=== PATIENT | female | born 1970 | race Caucasian/White ===

== ENCOUNTER 2017-06-28 12:08 | Outpatient (CLI) | payer BC ==
[~2017-06-28 12:08] MED LIST: Iopamidol 370 76% 100 ML VIAL ONE
== END 2017-06-28 12:09 | disposition home or self-care (01) ==
LOC: BICCT 12:08
PROVIDERS: ATTEND Student in an Organized Health Care Education/Training Program
DX: R19.00 Intra-abdominal and pelvic swelling, mass and lump, unspecified site (principal); N85.2 Hypertrophy of uterus; K42.9 Umbilical hernia without obstruction or gangrene
CPT/HCPCS: 74177

== ENCOUNTER 2018-02-24 07:59 | Outpatient (CLI) | payer BC | END 2018-02-24 08:00 | disposition home or self-care (01) | LOC: BICMAMMO 07:59 | PROVIDERS: ATTEND Student in an Organized Health Care Education/Training Program | DX: Z12.31 Encounter for screening mammogram for malignant neoplasm of breast (principal); Z85.850 Personal history of malignant neoplasm of thyroid | CPT/HCPCS: 77063; 77067 ==

== ENCOUNTER 2018-07-08 11:17 | Outpatient (CLI) | payer BC ==
[2018-07-08 14:06] LABS: #Basophils 0.1 thou/uL (0.0-0.2); #Eosinphils 0.2 thou/uL (0.0-0.7); #Lymphocytes 2.8 thou/uL (1.20-3.40); #Monocytes 0.6 thou/uL (0.11-0.59); #Neutrophils 4.7 thou/uL (1.40-6.50); %Basophils 0.7 % (0.0-1.0); %Eosinophils 2.3 % (0.0-10.0); %Monocytes 7.5 % (0.0-10.0); %Neutrophils 56.4 % (42.0-75.0); Hemoglobin 15.5 g/dL (12.0-16.0); Mean Corpuscular HGB CONC 34.3 g/dL (32.0-36.0); Mean Corpuscular Hemoglobin 31.6 pg (27.0-31.0); Platelet Count 308 thou/uL (130-400); RBC Distribution Width 12.1 % (11.5-14.5); Red Blood Cell (RBC) Count 4.91 mill/uL (4.20-5.40); White Blood Cell (WBC) Count 8.3 thou/uL (4.8-10.8)
[2018-07-08 14:24] LABS: Anion Gap 13 mmol/L (10-20); BUN (Urea Nitrogen) 15 mg/dL (7.0-18.7); Calc. Creatinine Clearance 0 mL/min (70-130); Carbon Dioxide 27 mmol/L (22-29); Chloride 102 mmol/L (98-107); Estimated GFR-MDRD 83; Glucose 100 mg/dL (70-105); Potassium 3.7 mmol/L (3.5-5.1); Sodium 138 mmol/L (136-145)
== END 2018-07-08 11:18 | disposition home or self-care (01) ==
LOC: LABBT 11:17
PROVIDERS: ATTEND Surgery
DX: Z01.818 Encounter for other preprocedural examination (principal); K43.9 Ventral hernia without obstruction or gangrene
CPT/HCPCS: 80048; 85025; 93005; 93010

== ENCOUNTER 2018-07-15 12:03 | Day surgery (SDC) | payer BC ==
[2018-07-08 12:24] VITALS: BMI 56.3
[~2018-07-15 12:03] MED LIST changes: +CEFAZOLIN 1 GM VIAL ONE; +Dexamethasone 20 MG/5 ML VIAL ONE; +Glycopyrrolate 0.2 MG/ML 5 ML SYRINGE ONE; -Iopamidol 370 76% 100 ML VIAL ONE; +Ketorolac Tromethamine 30 MG/ML VIAL ONE; +Lidocaine 1% PF 5 ML VIAL ONE; +Ondansetron PF 4 MG/2 ML Vial ONE; +PROPOFOL 200 MG/20 ML VIAL ONE; +Rocuronium Bromide 10 MG/ML (10ML VIAL) ONE; +Sterile Water 10 ML VIAL ONE
[2018-07-15] MEDS ORDERED: Bupivacaine/Epinephrine 0.25% 30 ML VIAL ONE (12:56)
[2018-07-15] MEDS ORDERED: Midazolam HCl 2 mg/2 ml Vial ONE (13:15)
[2018-07-15] MEDS ORDERED: CEFAZOLIN 2 GM/50 ML BAG ONE (13:37)
[2018-07-15] MEDS ORDERED: Famotidine/PF 20 mg/2ml Vial ONE (13:40)
[2018-07-15] MEDS ORDERED: Fentanyl 100 MCG/2 ML VIAL ONE ×2 (13:40→15:37)
[2018-07-15] MEDS ORDERED: HYDROmorphone 2 MG/ML VIAL ONE (16:15)
[2018-07-15] MEDS ORDERED: Promethazine HCl 25 MG/ML VIAL IM/IV PRN (17:04)
[2018-07-15] MEDS ORDERED: Ondansetron HCl/PF 4 MG/2 ML Vial IVP PRN (17:04)
[2018-07-15] MEDS ORDERED: Non-Formulary Medication 1 EACH PO PRN (17:04)
[2018-07-15] MEDS ORDERED: HYDROmorphone 2 MG/ML VIAL SLOW IVP PRN (17:04)
[2018-07-15] MEDS ORDERED: HYDROcodone/Acetaminophen 5/325 mg Tablet ONE (18:09)
--- NOTE | 2018-07-18 09:50 | OP ---
DATE OF PROCEDURE: 07/15/2018 PREOPERATIVE DIAGNOSIS: Ventral hernia. POSTOPERATIVE DIAGNOSIS: Ventral hernia. PROCEDURE PERFORMED: Ventral hernia repair with mesh, Ventralex ST. ANESTHESIA: General. ESTIMATED BLOOD LOSS: Minimal. COMPLICATIONS: None. SPECIMEN: None. FINDINGS: The patient's previously known large fibroadenomas are seen on laparoscopy and pictures were taken. DESCRIPTION OF PROCEDURE: The patient was taken to the operating room and laid supine on the operating room table. After general anesthetic was obtained, a Parry was placed. The abdomen was prepped and draped in a sterile fashion. Left subcostal 5-mm Optiview trocar was placed in the usual fashion. High-flow pneumoperitoneum was obtained. This port was switched out to a 11 mm trocar. Left and right abdominal 8 mm robot-assist ports were placed. All ports were docked to the robot. Significant amount of the patient's omentum was stuck up in this hernia. This was all reduced back down. The peritoneum was taken down exposing the posterior fascia. The defect, which was large, was closed using running #1 V-Loc suture. It was able to be closed in its entirety. The closure was reinforced with an 8 x 10 cm piece of Ventralex ST mesh that was rolled and placed in the abdominal cavity. The mesh exposed site was placed against the posterior abdominal wall. The nonadherent layer was left against the abdominal viscera. The mesh was sewn via V-Loc suture circumferentially to the posterior fascia. No injury to any intraabdominal structures. The patient's previously known large uterine fibroids are seen. All port sites were infiltrated using local anesthetic. All ports were removed under camera visualization without bleeding. Pneumoperitoneum was let down. 4-0 Monocryl and Dermabond used to close all skin incisions. The patient was sent to Recovery in stable condition. All instrument counts, needle counts, and lap counts were correct. Job ID: [id number]
== END 2018-07-15 19:30 | disposition home or self-care (01) ==
LOC: SDC 12:03
PROVIDERS: ATTEND Surgery
PROC: 0WUF4JZ Supplement Abdominal Wall with Synthetic Substitute, Percutaneous Endoscopic Approach (ICD-10-PCS; principal; 2018-07-15)
DX: K43.9 Ventral hernia without obstruction or gangrene (principal); E03.9 Hypothyroidism, unspecified; E78.00 Pure hypercholesterolemia, unspecified; F41.9 Anxiety disorder, unspecified; E55.9 Vitamin D deficiency, unspecified; Z90.89 Acquired absence of other organs; Z88.1 Allergy status to other antibiotic agents; Z79.51 Long term (current) use of inhaled steroids; Z79.84 Long term (current) use of oral hypoglycemic drugs; Z79.899 Other long term (current) drug therapy
CPT/HCPCS: 36416; 96374; A4216; J0131; J0690; J1100; J1170; J1885; J2001; J2250; J2405; J2704; J3010; S0028

== ENCOUNTER 2019-04-18 07:55 | Outpatient (CLI) | payer BC ==
--- NOTE | 2019-04-18 10:26 | MMO ---
Bilateral MAMMO Bilat Screen [facility]. CLINICAL HISTORY: Patient is 49 years old and is seen for screening. The patient has no family history of breast cancer. The patient has a history of thyroid cancer 2010. VIEWS: The views performed were: bilateral craniocaudal with tomosynthesis and bilateral mediolateral oblique with tomosynthesis. FILMS COMPARED: The present examination has been compared to prior imaging studies performed at [facility] on 06/11/2009 and 01/06/2011, and at [facility] on 11/27/2015 and 02/24/2018. This study has been interpreted with the assistance of computer-aided detection. MAMMOGRAM FINDINGS: There are scattered fibroglandular densities. Finding 1: There are stable benign appearing calcifications seen in both breasts. Finding 2: There are stable benign appearing densities seen in both breasts. There are no suspicious masses, suspicious calcifications, or new areas of architectural distortion. IMPRESSION: THERE IS NO MAMMOGRAPHIC EVIDENCE OF MALIGNANCY. A ROUTINE FOLLOW-UP MAMMOGRAM IN 1 YEAR IS RECOMMENDED. THE RESULTS OF THIS EXAM WERE SENT TO THE PATIENT. ACR BI-RADS Category 2 - Benign finding MAMMOGRAPHY NOTE: 1. A negative mammogram report should not delay a biopsy if a dominant of clinically suspicious mass is present. 2. Approximately 10% to 15% of breast cancers are not detected by mammography. 3. Adenosis and dense breasts may obscure an underlying neoplasm. Reported by: ADELFO THOMAS MD Electonically Signed: [id number]
== END 2019-04-18 07:56 | disposition home or self-care (01) ==
LOC: BICMAMMO 07:55
PROVIDERS: ATTEND Student in an Organized Health Care Education/Training Program
DX: Z12.31 Encounter for screening mammogram for malignant neoplasm of breast (principal); Z85.850 Personal history of malignant neoplasm of thyroid
CPT/HCPCS: 77063; 77067

== ENCOUNTER 2019-05-30 07:44 | Outpatient (CLI) | payer BC ==
--- NOTE | 2019-05-30 08:18 | CT ---
CT Abdomen Pelvis W Con HISTORY: History of uterine fibroids hernia repair hematuria COMPARISON: 06/28/2017 study. FINDINGS: The lung bases are clear of infiltrates. There are mild fatty changes of the liver. Spleen is normal in size. The pancreas and gallbladder reg ions appear unremarkable. Right and left adrenal glands and right and left kidneys are normal there is no significant periaorti c or mesenteric adenopathy. CT of pelvis performed with contrast enhancement markedly enlarged uterus is again noted with uterine fibroids some of which are calcified. The uterus measures approximately 23 cm in length. There is no significant pelvic lymphadenopathy. A periumbilical hernia is again noted with herniation of small bowel without obstruction. IMPRESSION: 1. Stable overall exam. Markedly enlarged fibromatous uterus is noted and umbilical hernia are seen.
[2019-05-30] MEDS ORDERED: ISOVUE-370 76%-LOCM 1 ML ONE (12:00)
== END 2019-05-30 07:45 | disposition home or self-care (01) ==
LOC: BICCT 07:44
PROVIDERS: ATTEND Student in an Organized Health Care Education/Training Program
DX: D25.9 Leiomyoma of uterus, unspecified (principal); R19.00 Intra-abdominal and pelvic swelling, mass and lump, unspecified site; N85.2 Hypertrophy of uterus
CPT/HCPCS: 74177; Q9966

== ENCOUNTER 2019-07-03 11:36 | Outpatient (CLI) | payer BC | END 2019-07-03 11:37 | disposition home or self-care (01) | LOC: LABBT 11:36 | PROVIDERS: ATTEND Student in an Organized Health Care Education/Training Program | DX: Z01.818 Encounter for other preprocedural examination (principal); D25.9 Leiomyoma of uterus, unspecified; R10.2 Pelvic and perineal pain | CPT/HCPCS: 93005; 93010 ==

== ENCOUNTER 2019-07-04 05:58 | Day surgery (SDC) | payer BC ==
[2019-07-03 12:15] VITALS: BMI 60.2
[2019-07-03 12:57] LABS: Hemoglobin 14.9 g/dL (12.0-16.0); Mean Corpuscular HGB CONC 33.3 g/dL (32.0-36.0); Mean Corpuscular Hemoglobin 31.7 pg (27.0-31.0); Mean Corpuscular Volume 95.1 fL (78.0-98.0); Mean Platelet Volume 6.6 fL (7.4-10.4); Platelet Count 299 thou/uL (130-400); Red Blood Cell (RBC) Count 4.71 mill/uL (4.20-5.40)
[2019-07-03 13:17] LABS: BHCG - Serum Negative (NEGATIVE); Pregs Control Background? CLEAR/WHITE (CLR/WHITE); Pregs Control Bar Appear? YES (CONTROL BAR)
[2019-07-03 13:20] LABS: ALT (SGPT) 21 U/L (8-55); AST (SGOT) 16 U/L (5-34); Albumin 4.4 g/dL (3.5-5.0); Alkaline Phosphatase 77 U/L (40-110); Anion Gap 13 mmol/L (10-20); BUN (Urea Nitrogen) 14 mg/dL (9.8-20.1); Bilirubin, Direct 0.2 mg/dL (0.1-0.3); Bilirubin, Total 0.5 mg/dL (0.2-1.2); Calc. Creatinine Clearance 0 mL/min (70-130); Calcium 10.3 mg/dL (7.8-10.44); Carbon Dioxide 27 mmol/L (22-29); Chloride 104 mmol/L (98-107); Estimated GFR-MDRD 73; Globulin 2.5 g/dL (2.4-3.5); Glucose 154 mg/dL (70-105); Potassium 4.2 mmol/L (3.5-5.1); Protein, Total 6.9 g/dL (6.0-8.3); Sodium 140 mmol/L (136-145)
[2019-07-04] MEDS ORDERED: Famotidine/PF 20 mg/2ml Vial ONE (06:14)
[2019-07-04] MEDS ORDERED: CeleCOXIB 100 MG CAP ONE (06:15)
[2019-07-04] MEDS ORDERED: CEFAZOLIN 3 GM in Sodium Chloride 0.9% 100 ML IVPB SCH (06:30)
[2019-07-04] MEDS ORDERED: Gabapentin 300 MG CAP PO SCH (06:30)
[2019-07-04] MEDS ORDERED: Lidocaine 1% w/Epinephrine 1:100K 20 ML VIAL ONE (06:50)
[2019-07-04] MEDS ORDERED: Bupivacaine 0.25% HCL 30 ML VIAL ONE (06:50)
[2019-07-04] MEDS ORDERED: Fentanyl 250 MCG/5 ML VIAL ONE ×2 (06:55→10:05)
[2019-07-04] MEDS ORDERED: Midazolam HCl 2 mg/2 ml Vial ONE (07:13)
[2019-07-04] MEDS ORDERED: Gabapentin 300 MG CAP ONE (07:14)
[2019-07-04] MEDS ORDERED: Glycopyrrolate 0.2 MG/ML 5 ML SYRINGE ONE (10:13)
[2019-07-04] MEDS ORDERED: Dexamethasone 20 MG/5 ML VIAL ONE (10:13)
[2019-07-04] MEDS ORDERED: PROPOFOL 200 MG/20 ML VIAL ONE (10:13)
[2019-07-04] MEDS ORDERED: Vecuronium 10 MG VIAL ONE (10:13)
[2019-07-04] MEDS ORDERED: Rocuronium Bromide 10 MG/ML (10ML VIAL) ONE (10:13)
[2019-07-04] MEDS ORDERED: Lidocaine 1% PF 5 ML VIAL ONE (10:13)
[2019-07-04] MEDS ORDERED: Ondansetron PF 4 MG/2 ML Vial ONE (10:13)
[2019-07-04] MEDS ORDERED: CEFAZOLIN 1 GM VIAL ONE (12:01)
[2019-07-04] MEDS ORDERED: Ondansetron PF 4 MG/2 ML Vial IVP PRN (12:25)
[2019-07-04] MEDS ORDERED: Fentanyl 100 MCG/2 ML VIAL SLOW IVP PRN (12:25)
[2019-07-04] MEDS ORDERED: Zolpidem Tartrate 5 MG TAB PO PRN (12:25)
[2019-07-04] MEDS ORDERED: Acetaminophen 325 MG TAB PO PRN (12:25)
[2019-07-04] MEDS ORDERED: ALPRAZolam 0.5 MG TAB PO PRN (12:25)
[2019-07-04] MEDS ORDERED: Bisacodyl 10 MG SUPP PR PRN (12:25)
[2019-07-04] MEDS ORDERED: HYDROcodone/Acetaminophen 5/325 mg Tablet PO PRN ×2 (12:25)
[2019-07-04] MEDS ORDERED: diphenhydrAMINE 25 MG CAP PO PRN (12:25)
[2019-07-04] MEDS ORDERED: Simethicone Chewable 80 MG TAB PO PRN (12:25)
[2019-07-04] MEDS ORDERED: Promethazine HCl 25 MG/ML VIAL IM PRN (12:25)
[2019-07-04] MEDS ORDERED: Lactated Ringer's 1,000 ML IV SCH (12:30)
[2019-07-04] MEDS ORDERED: Bacitracin Zinc Ointment 30 gm TUBE ONE (12:38)
[2019-07-04] MEDS ORDERED: SUGAMMADEX SODIUM 200 MG/2 ML VIAL ONE (12:58)
[2019-07-04] MEDS ORDERED: Fentanyl 100 MCG/2 ML VIAL ONE ×2 (13:49→15:02)
[2019-07-04] MEDS ORDERED: Metoprolol Tartrate 5 MG/5 ML VIAL ONE (14:40)
--- NOTE | 2019-07-04 17:40 | OP ---
DATE OF PROCEDURE: 07/04/2019 PREOPERATIVE DIAGNOSIS: Incisional hernia, recurrent. POSTOPERATIVE DIAGNOSIS: Incisional hernia, recurrent. PROCEDURES PERFORMED: 1. Laparoscopic lysis of adhesions. 2. Open primary repair of recurrent ventral hernia without mesh. ANESTHESIA: General. ESTIMATED BLOOD LOSS: Minimal. COMPLICATIONS: None. DESCRIPTION OF PROCEDURE: The patient was undergoing hysterectomy and I was called to address her recurrent hernia. She was taken to the operating room and laid supine on the table. After general anesthetic was obtained, a Parry was placed. The abdomen was prepped and draped in a sterile fashion. Left subcostal 5 mm Optiview trocar was placed in usual fashion and high-flow pneumoperitoneum obtained. An 8-mm robot trocar was placed in the left lateral abdomen. Adhesions were taken down in the area of previous hernia repair. There was a small bowel and omentum that was reduced out of this hernia, but it was able to be reduced without significant difficulty. The procedure was then turned over to the finish off operator to perform hysterectomy. I scrubbed back into the procedure after their portion was done. There was an Kenneth laparoscopic wound retractor in the area of previous hernia. There was also a 12-mm port in the upper midline abdomen. Under camera visualization, I closed the upper port site using GraNee needle and 0 Vicryl tie. All ports were removed under camera visualization and pneumoperitoneum was let down. The recurrent hernia at the umbilicus was closed primarily using running PDS suture. Mesh was not placed given the clean, contaminated portion of the hysterectomy. The subcutaneous tissues were irrigated. The subcutaneous tissues were closed using 3-0 Vicryl, skin was closed using 4-0 Monocryl and Dermabond. Antibiotic ointment, cotton balls, and Tegaderm were used to dress the umbilicus. The patient was en route to Recovery in stable condition. All instrument counts, needle counts, and lap counts were correct. Job ID: [id number]
[2019-07-04] MEDS: Gabapentin 300 MG CAP PO SCH ×2 (17:48→22:25)
[2019-07-04] MEDS: Ketorolac Tromethamine 30 MG/ML VIAL IVP SCH (17:53)
[2019-07-04] MEDS ORDERED: Metoprolol Tartrate 5 MG/5 ML VIAL IVP PRN (20:03)
[2019-07-05] MEDS: Ketorolac Tromethamine 30 MG/ML VIAL IVP SCH ×2 (00:15→06:15)
[2019-07-05 05:44] LABS: Hemoglobin 12.9 g/dL (12.0-16.0); Mean Corpuscular HGB CONC 33.9 g/dL (32.0-36.0); Mean Corpuscular Hemoglobin 32.1 pg (27.0-31.0); Mean Corpuscular Volume 94.8 fL (78.0-98.0); Platelet Count 244 thou/uL (130-400); RBC Distribution Width 12.1 % (11.5-14.5); Red Blood Cell (RBC) Count 4.03 mill/uL (4.20-5.40)
[2019-07-05] MEDS ORDERED: Levothyroxine Sodium 50 MCG TAB PO SCH (06:00)
[2019-07-05] MEDS ORDERED: Levothyroxine Sodium 112 MCG TAB PO SCH (06:00)
[2019-07-05 07:48] VITALS: BP 104/50; TEMP 97.9
--- NOTE | 2019-07-05 08:47 | OP ---
DATE OF PROCEDURE: 07/04/2019 PREOPERATIVE DIAGNOSES: 1. Fibroid uterus. 2. Menorrhagia. 3. Adenomyosis. 4. Pelvic pain. POSTOPERATIVE DIAGNOSES: 1. Fibroid uterus. 2. Menorrhagia. 3. Adenomyosis. 4. Pelvic pain. PROCEDURES: 1. Robotic-assisted total laparoscopic hysterectomy, bilateral salpingectomy, extracorporeal morcellation and cystoscopy. 2. Incisional hernia repair by Dr. Jose. Please see his dictation for details. ESTIMATED BLOOD LOSS: 200 mL. IVF: 2200 mL crystalloid. URINE OUTPUT: 200 mL clear urine. PATHOLOGY: Uterus, cervix, bilateral fallopian tubes. ANESTHESIA: General endotracheal. RUNNER OUT SURGEON: Myranda Temple DO COMPLICATIONS: None. DRAINS: Parry catheter. FINDINGS: Large broad based mobile 24-week size uterus with multiple uterine fibroids. Cervix was normal appearing. The uterus sounded to 15 cm. The uterine weight after morcellation was 2173 g. The ovaries and fallopian tubes were normal appearing bilaterally. On cystoscopy, the bladder mucosa was within normal limits. There were no lesions. Her laceration bilateral ureteral jets noted from the ureteral orifice. OPERATIVE TECHNIQUE: The patient was taken to the operating room, where general anesthesia was obtained without difficulty. The patient was prepped and draped in a sterile fashion in dorsal lithotomy position. performed secondary to her morbid obesity status, which she passed successfully. The patient was then flattened out by Dr. Jose, entered into the abdomen in the left upper quadrant. During that time, I placed a Parry catheter in the bladder. A speculum was placed in the vagina and anterior lip of the cervix was grasped with a single-tooth tenaculum. The uterus then sounded to 15 cm and the cervix was progressively dilated with Marco dilators. The cervix was very high and the vaginal canal was very long. This made visualization difficult. Therefore, retractors placed in the vagina to allow for visualization. The MAURILIO manipulator was assembled with a 4 cm cup and a 12 cm tip. The tip was inserted after multiple manipulation to the uterine fundus successfully under direct visualization of the laparoscope and the instruments removed out of the vagina and the colpotomizer ring was advanced, fit snugly around the cervix and the balloons were inflated. Legs were placed in low lithotomy. Attention was turned to the abdomen. A 12-mm balloon trocar was placed approximately 4 fingerbreadths above the umbilicus under direct visualization from the left upper quadrant after infiltrating with anesthetic. A right lower quadrant robotic trocar was placed that was 8-mm under direct visualization after infiltrating with anesthetic and a right upper quadrant 11 mm port was placed under direct visualization after infiltrating with anesthetic for assistant therapy aide port. The umbilicus was then grasped with 2 Houston's and everted. There was a large hernia defect in the umbilicus. The skin was incised with a knife approximately 4 cm and the large Kenneth was placed into that incision and cinched down. It was determined this was actually in the pre-rectus space. Therefore, it was removed and replaced underneath the fascia. The GelPOINT was then affixed to the top and pneumoperitoneum was reestablished. The patient was then placed in Trendelenburg and the robot was docked. The right robotic arm contained monopolar scissors. Left robotic arm contained a fenestrated bipolar. Dr. Jose had previously placed the left lower quadrant robotic trocar as well as a 5 mm left upper quadrant trocar. The surgeon console then took control. The left fallopian tube was grasped and elevated and the mesosalpinx was cauterized with the fenestrated and transected with the scissors. This was then clamped across the medial portion, cauterized, transected, and removed out of the abdomen. The utero-ovarian on the left side was cauterized with the fenestrated and transected as well as the left round ligament. Once the ligament was incised, those 2 incisions were then brought together with cautery followed by transection to ensure hemostasis. The anterior leaf of the broad ligament was then opened out. The uterus was very broad based to the pelvic sidewall as well as multiple fibroids anteriorly that somewhat impeded visualization of the lower uterine segment and so the bladder. The broad ligament was incised as far inferiorly as visibly possible. At this time, attention was turned to that made visualization of the structures difficult. However, the round ligament was identified and able to be transected. The anterior leaf of the broad ligament was then incised on the left side . At this point, the camera was changed out to a in order to visualize the bladder flap. The vesicouterine peritoneum was incised with the scissors and the adventitia was incised with the scissors as well as pushing and spreading scissors down towards colpotomizer ring. At this time, the assistant therapy aide used a 10-mm tenaculum to grasp the right side of the uterus to pull traction in order to visualize the utero-ovarian. The fallopian tube was then incised and removed and taken out of the abdomen. The utero-ovarian was cauterized and incised and this allowed the incisions from the utero-ovarian to the round ligament to be brought together. At that time, the tenaculum was removed and replaced on the patient's left side. This allowed the uterus to be more anteverted to visualize the posterior leaf of the broad ligament. The lateral vessels in between the ovary and the cervix were cauterized down the side of the uterus to prevent bleeding with placing traction on them. The posterior leaf of the broad ligament was incised very carefully. The bowel in the way could not tolerate much Trendelenberg. Therefore, the retractor was placed through the meningeal point after the port was placed in that and this allowed the bowel to be retracted posteriorly. Once the posterior leaf had been incised, the vessels on the left side were skeletonized very carefully, mainly with the blunt dissection, pushing and spreading with the fenestrated. The vessels were then cauterized on the left side. Attention was turned to the patient's right side, where the tenaculum was replaced on the patient's right side to help Antivert that right side and the bow retractor was replaced in order to visualize and suction was performed and there had been some oozing from the retroperitoneum. The posterior leaf of the broad ligament was incised and the vessels were skeletonized on the right side. The vessels were then cauterized and the bladder flap was further developed by scoring on the pubocervical fascia and dissecting down below the level of the colpotomizer ring. Once the vessels of the bladder had been adequately taken down and the vessels cauterized adequately, an anterior colpotomy was performed. This was then taken around the left side. The tenaculum was used then to pull traction on the uterus to help with disability. The left vessels were incised. There was brisk bleeding during this procedure as multiple collateral vessels were traveling on the uterine pedicle at the internal cervical os. This was hemostatic with cautery from the fenestrated and this was carried around where the posterior colpotomy was also performed there about the medial portion in the posterior aspect. The left side was then incised after re-cauterizing the vessels and dissecting the vascular pedicle well off the apex of the vaginal cuff. The hemostasis was achieved. Bleeding was not excessive and colpotomy was then completed with traction on the uterus as necessary to allow for visualization as well as retractor. In total, this created the bowel being extremely in the way as well as the size of the uterus created a very difficult case with multiple repositioning and multiple instruments to allow for optimization of maintaining this procedure laparoscopic approach and once the uterus had been removed off the vagina, the manipulator was removed and was taken out of the vagina. The uterus was placed into the upper abdomen and the vaginal cuff was irrigated. The scissors were traded out for the needle seasonal driver. Hemostasis was achieved of the vaginal cuff with the fenestrated and the vaginal cuff was closed with a 2-0 Stratafix suture in a running fashion and then ran back for a second layer incorporating vaginal mucosa and posterior peritoneum into each bite. The needle was cut and removed out of the abdomen and again the vaginal cuff was examined and noted to be hemostatic as well as on low pressure check. At that time, Tisseel was placed over the vaginal cuff and pedicles. The bag had previously been placed through the GelPOINT incision and this was brought down into the pelvis. The uterus was then balanced bag was opened up and the uterus was allowed to drop into the bag after manipulating the bag along with the help of the assistant therapy aide. Once the uterus was securely in the bag, this was brought through the GelPOINT. At that point, the instruments were removed out of the robotic arms and attention was turned to the vagina. The Parry catheter was removed out of the bladder. A 7-degree cystoscope was assembled and placed into the bladder, where there was no damage to the bladder mucosa occurring during that hysterectomy. There were no masses or abnormalities in the bladder and there was bilateral vigorous ureteral efflux from the ureteral orifices of clear urine. The cystoscope was then removed. The Parry catheter was replaced. Attention was turned to the abdomen, where the GelPOINT was taken off the Kenneth and the specimen was brought to the abdomen and extracorporeal contain morcellation was then performed using as the incision technique with an 11 blade and this took approximately 30 minutes. Once this was complete, the Kenneth retractor was removed out of the abdomen and Dr. Jose took over closing the incision as well as the incisional hernia present at the umbilicus. The vaginal cuff was checked and noted to be hemostatic with excellent closure and all instruments removed out of the vagina. The patient tolerated the procedure well. Sponge, lap, and needle counts correct x2. The patient was taken to recovery room in stable condition. The patient received Ancef 3 g prior to the procedure as well as at the conclusion of the procedure based on intraoperative time . Job ID: [id number]
[2019-07-05] MEDS: Gabapentin 300 MG CAP PO SCH (08:59)
[2019-07-05] MEDS ORDERED: Triamterene/Hydrochlorothiazide 37.5 mg/25 mg Tablet PO SCH (09:00)
--- NOTE | 2019-07-05 09:31 | PDOC.EVN ---
Event Note - Event Note Event Note: POD1 S: Pain controlled, perla po, +flatus and ambulation, normal voiding. No dizziness, palpitations, fever/chills O: pulse slightly tachy, tmax 100.2 overnight, Pox wnl, resp 16 NAD RRR pulse 96 manually unlabored respirations soft, nd/nt/BS+, inc c/d/i Benigno rodriguez Hgb 12.9 A) POD1 s/p RATLH morcellation and hernia repair P) Lovenox this am for DVT ppx, recommended ambulation - Pain controlled, transition to po only, advised on scheduled ibuprofen - Met postop milestones - intraop findings discussed, path pending - Postop care discussed - DC home FU 2 weeks postop
[2019-07-05] MEDS ORDERED: Enoxaparin Sodium 40 MG/0.4 ML SYRINGE SC SCH ×2 (09:45→21:00)
[2019-07-09] MEDS ORDERED: Ibuprofen 800 MG TAB PO SCH (22:00)
== END 2019-07-05 11:00 | disposition home or self-care (01) ==
LOC: SDC 05:58 → 3SE 12:25 → SDC 07-05 11:00
PROVIDERS: ATTEND Student in an Organized Health Care Education/Training Program
PROC: 0UT74ZZ Resection of Bilateral Fallopian Tubes, Percutaneous Endoscopic Approach (ICD-10-PCS; principal; 2019-07-04)
PROC: 0WQF0ZZ Repair Abdominal Wall, Open Approach (ICD-10-PCS; principal; 2019-07-04)
PROC: 0UT94ZZ Resection of Uterus, Percutaneous Endoscopic Approach (ICD-10-PCS; principal; 2019-07-04)
DX: D25.1 Intramural leiomyoma of uterus (principal); N80.0 Endometriosis of uterus; K43.2 Incisional hernia without obstruction or gangrene; E89.0 Postprocedural hypothyroidism; E78.5 Hyperlipidemia, unspecified; I10 Essential (primary) hypertension; F41.9 Anxiety disorder, unspecified; E66.01 Morbid (severe) obesity due to excess calories; Z68.44 Body mass index [BMI] 60.0-69.9, adult; Z79.899 Other long term (current) drug therapy; Z88.5 Allergy status to narcotic agent
CPT/HCPCS: 36415; 36416; 80053; 80076; 84703; 85027; 86850; 86900; 86901; 88307; J0690; J1100; J1650; J1885; J2001; J2250; J2405; J2704; J3010; J3490; S0020; S0028

== ENCOUNTER 2019-08-18 14:04 | Outpatient (CLI) | payer BC ==
--- NOTE | 2019-08-18 16:02 | MRI ---
MRI OF LEFT KNEE WITHOUT CONTRAST: 08/18/19 HISTORY: M23.92 internal derangement of the left knee. COMPARISON: None. FINDINGS: MEDIAL MENISCUS: There is medial gutter extrusion of the medial meniscal body. High grade radial tear anterior horn/sandeep dy junction, near complete, with an AP dimension of 6 mm. Extensive adjacent soft tissue swelling. LATERAL MENISCUS: Intact. ACL, PCL, MCL and LCL are intact. EXTENSOR MECHANISM: The quadriceps tendon, patella and patellar tendon are all intact. CARTILAGE: Patellofemoral compartment: Multifocal full thickness chondral fissuring and fraying of the lateral trochlea and lateral patellar facet with subcortical reaction marrow change. Large lateral trochlea and lateral patellar osteophyt e formation. Medial compartment: Grade II chondromalacia. Lateral compartment: Grade II chondromalacia. Posterior flexion zones are intact. BONES: There is a large both sides subcortical cysts containing fluid and some peripheral fat in the medial tibial plateau extending from the PCL/medial meniscal footprint. Very large tricompartmental osteophy juan, greatest seen in lateral and patellofemoral compartment. No acute fracture. SOFT TISSUES: There is synovial hypertrophy with fatty metaplasia. MUSCLES: Muscle signal and bulk is normal. IMPRESSION: 1. High grade radial tear anterior horn/body junction of medial meniscus with free edge intermed iate in red zone with further AP length of 5 mm with extensive adjacent soft tissue swelling. 2. Large interosseous ganglion pseudocyst medial tibial plateau extending from the PCL/medial me niscal footprint, likely chronic in nature, as there is well defined sclerotic margin as seen on the prior radiograph. 3. 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 4. 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 5. Small joint effusion with synovial hypertrophy and fatty metaplasia, lipoma arborescens, vill ous lipomatous proliferation synovium. POS: OFF
== END 2019-08-18 14:05 | disposition home or self-care (01) ==
LOC: TBSIIMAG 14:04
PROVIDERS: ATTEND Orthopaedic Surgery
DX: M23.92 Unspecified internal derangement of left knee (principal); M25.462 Effusion, left knee; M22.42 Chondromalacia patellae, left knee; S83.242A Other tear of medial meniscus, current injury, left knee, initial encounter; D17.9 Benign lipomatous neoplasm, unspecified; M79.89 Other specified soft tissue disorders; M67.462 Ganglion, left knee

== ENCOUNTER 2020-05-03 07:58 | Outpatient (CLI) | payer BC ==
--- NOTE | 2020-05-03 08:29 | MMO ---
Bilateral MAMMO Bilat Screen [facility]. CLINICAL HISTORY: Patient is 50 years old and is seen for screening. The patient has no family history of breast cancer. The patient has a history of thyroid cancer 2010. VIEWS: The views performed were: bilateral craniocaudal with tomosynthesis and bilateral mediolateral oblique with tomosynthesis. FILMS COMPARED: The present examination has been compared to prior imaging studies performed at [facility] on 01/06/2011, and at [facility] on 11/27/2015, 02/24/2018 and 04/18/2019. This study has been interpreted with the assistance of computer-aided detection. MAMMOGRAM FINDINGS: There are scattered fibroglandular densities. There are stable benign appearing calcifications seen in both breasts. There are no suspicious masses, suspicious calcifications, or new areas of architectural distortion. IMPRESSION: THERE IS NO MAMMOGRAPHIC EVIDENCE OF MALIGNANCY. A ROUTINE FOLLOW-UP MAMMOGRAM IN 1 YEAR IS RECOMMENDED. THE RESULTS OF THIS EXAM WERE SENT TO THE PATIENT. ACR BI-RADS Category 2 - Benign finding MAMMOGRAPHY NOTE: 1. A negative mammogram report should not delay a biopsy if a dominant of clinically suspicious mass is present. 2. Approximately 10% to 15% of breast cancers are not detected by mammography. 3. Adenosis and dense breasts may obscure an underlying neoplasm. Reported by: VERNON HUERTA MD Electonically Signed: [id number]
== END 2020-05-03 07:59 | disposition home or self-care (01) ==
LOC: BICMAMMO 07:58
PROVIDERS: ATTEND Student in an Organized Health Care Education/Training Program
DX: Z12.31 Encounter for screening mammogram for malignant neoplasm of breast (principal); Z85.850 Personal history of malignant neoplasm of thyroid
CPT/HCPCS: 77063; 77067